=== PATIENT | female | born 1965 | race Caucasian/White ===

== ENCOUNTER → 2018-01-28 13:55 | Outpatient (POV) | payer MEDICAID, SELFPAY | PROVIDERS: Family Provider General Practice | DX: Z00.00 Encounter for general adult medical examination without abnormal findings (principal) ==

== ENCOUNTER 2021-06-02 15:22 | Emergency (ER) | payer MEDICAID, SELFPAY ==
[2021-06-02 17:14] VITALS: BP 0/0; PULSE 0; RESP 0; TEMP -17.7; TEMP 0; O2SAT 0
== END 2021-06-02 17:15 | disposition left against medical advice (07) ==
LOC: ER 16:16
PROVIDERS: Emergency Provider Emergency Medicine
DX: Z53.21 Procedure and treatment not carried out due to patient leaving prior to being seen by health care provider (principal)
CPT/HCPCS: 99211

== ENCOUNTER → 2021-07-06 21:39 | Outpatient (CLI) | payer MEDICAID, SELFPAY | PROVIDERS: Visit Provider Emergency Medicine | DX: U07.1 COVID-19 (principal) | CPT/HCPCS: C9803; U0003; U0005 ==

== ENCOUNTER 2021-07-08 12:28 | Emergency (ER) | payer MEDICAID, SELFPAY ==
[2021-07-08 12:29] VITALS: BP 137/62; PULSE 79; RESP 20; TEMP 37.2; O2SAT 93; BMI 32.2
[2021-07-08 13:00] VITALS: BP 118/65; O2SAT 92; BMI 32.2
--- NOTE | 2021-07-08 13:01 | XR_ITS ---
PROCEDURE INFORMATION: Exam: XR Chest Exam date and time: 07/08/2021 1:01 PM Age: 55 years old Clinical indication: Cough and fever; Patient HX: Covid positive, cough, fever, smoker. TECHNIQUE: Imaging protocol: XR of the chest. Views: 1 view. COMPARISON: CR CXR2V XR chest 2V 10/10/2017 2:11 PM FINDINGS: Lungs: Mild chronic right infrahilar interstitial prominence and peribronchial thickening compared with 10/10/2017. No focal consolidation. Normal lung volumes. Chronic calcified right lower pulmonary granuloma. Pleural spaces: Unremarkable. No significant pleural effusion. No pneumothorax. Heart/Mediastinum: Chronic borderline cardiomegaly. Bones/joints: There are spinal degenerative changes, with multilevel disc narrrowing and spondylosis. Soft tissues: Chronic right upper quadrant abdominal surgical clips, correlate for cholecystectomy. IMPRESSION: 1. No acute findings compared with 10/10/2017. 2. Chronic right infrahilar interstitial prominence and peribronchial thickening, correlate for history of bronchitis. 3. Chronic right lower pulmonary granuloma. 4. No focal consolidation. 5. Additional nonemergency and chronic findings as above. 6. Note that subtle ground-glass opacities of COVID-19 pneumonia can be radiographically occult on plain chest x-ray, and if further imaging is warranted by the clinical findings or course recommend CT.
--- NOTE | 2021-07-08 13:02 | HMH.EDGENADL ---
ED Disposition Clinical Impression: COVID-19 virus infection, Elevated liver enzymes Disposition: Home, Self-Care Condition on Discharge: Good Instructions: DI for Vomiting -- Adult, DI for COVID-19 (Suspected or Confirmed ) Additional Instructions: You are being provided with a list of physicians available for follow-up of your condition. Please call a physician on this list to arrange a follow-up appointment as soon as possible. Zofran as needed for nausea and vomiting. Rest, drink plenty of fluids. Tylenol or Ibuprofen for fever and/or aches and pains. Monitor your symptoms. IF YOU HAVE AN EMERGENCY WARNING SIGN (INCLUDING TROUBLE BREATHING), SEEK EMERGENCY MEDICAL CARE IMMEDIATELY. COVID-19 Isolation: People with COVID-19 should isolate for 5 days. Then if they are asymptomatic (no symptoms) or their symptoms are resolving (without fever for 24 hours), follow that by 5 days of wearing a mask when around others to minimize the risk of infecting people you encounter. If you test positive for COVID-19 and never develop symptoms, day 0 is the day of your positive viral test (based on the date you were tested) and day 1 is the first full day after your positive test. If you develop symptoms after testing positive, your 5-day isolation period must start over. Day 0 is your first day of symptoms. Day 1 is the first full day after your symptoms developed. What to do: Stay in a separate room from other household members, if possible. Use a separate bathroom, if possible. Avoid contact with other members of the household and pets. Don?t share personal household items, like cups, towels, and utensils. Wear a mask when around other people if able. Prescriptions: Ondansetron [Zofran 4mg ODT] 4 mg PO TIDP PRN #10 tab PRN Reason: Nausea And Vomiting Transmission Status: Pending to [id number] Referrals: Provider,Referral, [Primary Care Provider] - - Critical Care Critical Care Time: No Attestation: On , the high probability of a clinically significant, sudden or life threatening deterioration of the following system(s) required my full and direct attention, intervention and personal management. The time I documented below is in addition to time spent performing reported procedures but includes the following listed in this critical care notation. Medical Decision Making - King Inquiry Pt receiving controlled substance: No Vital Signs: 01/23/22 12:29 07/08/21 13:00 07/08/21 13:30 Temperature 99.0 F Temperature Source Oral Pulse Rate 76 Pulse Rate [Left Radial] 79 Respiratory Rate 20 Blood Pressure 118/65 126/59 L Blood Pressure [Right Arm] 137/62 Blood Pressure Mean 77 Blood Pressure Mean [Right Arm] 87 Blood Pressure Source [Right Arm] Automatic Cuff Blood Pressure Position [Right Arm] Sitting 02 Sat by Pulse Oximetry 93 L 92 L 90 L Oxygen Delivery Method Room Air - Lab Data Lab Results 07/08/21 12:55: WBC 8.3, RBC 4.04 L, Hgb 12.7, Hct 38.9, MCV 96.3, MCH 31.4 H, MCHC 32.6, RDW 13.0, Plt Count 176, MPV 9.0, Neut % (Auto) 86.3 H, Lymph % (Auto) 8.7 L, [place] % (Auto) 3.8, Eos % (Auto) 0.2, Baso % (Auto) 1.1, Neut # (Auto) 7.1, Lymph # (Auto) 0.7, [place] # (Auto) 0.3, Eos # (Auto) 0.0, Baso # (Auto) 0.1, Total Counted 100, Neutrophils % (Manual) 83 H, Band Neutrophils % 2.0, Lymphocytes % (Manual) 10, Monocytes % (Manual) 5, Platelet Estimate Normal, RBC Morphology Normal 07/08/21 12:55: Sodium 139, Potassium 3.3 L, Chloride 103, Carbon Dioxide 29, Anion Gap 10.3, BUN 14, Creatinine 0.70, Estimated Creat Clear 110, Estimated GFR 88, Est GFR ( Amer) 106, Glucose 132 H, Calcium 8.6, Total Bilirubin 0.3, AST 192 H, ALT 147 H, Alkaline Phosphatase 171 H, Total Protein 7.3, Albumin 4.3, Globulin 3.0, Albumin/Globulin Ratio 1.4 Result diagrams: 07/08/21 12:55 07/08/21 12:55 Orders (Tests/Meds): ED MEDICATIONS Generic Name Dose Route Start Last Ad
[2021-07-08 13:12] LABS: Basophils # 0.1 K/mm3 (0-0.2); Basophils % 1.1 % (0.1-2.0); Chloride 103 mmol/L (98-107); Eosinophils % 0.2 % (0.1-12.0); Hematocrit 38.9 % (37.0-47.0); Hemoglobin 12.7 g/dL (12.2-16.2); Lymphocytes # 0.7 K/mm3 (0.7-4.5); Lymphocytes % 8.7 % (10-50); Mean Corpuscular HGB Conc 32.6 g/dL (31.8-35.4); Mean Corpuscular Hemoglobin 31.4 pg (27.0-31.2); Mean Corpuscular Volume 96.3 fl (81-99); Monocytes # 0.3 K/mm3 (0.1-1.0); Monocytes % 3.8 % (1.7-9.3); Neutrophils # 7.1 K/mm3 (1.8-7.8); Neutrophils % 86.3 % (37.0-80.0); Platelet Count 176 K/mm3 (142-424); Red Blood Count 4.04 M/mm3 (4.20-5.40); White Blood Count 8.3 K/mm3 (4.8-10.8)
[2021-07-08 13:13] LABS: Potassium 3.3 mmoL/L (3.5-5.1); Sodium 139 mmol/L (136-145)
[2021-07-08 13:15] LABS: Alanine Aminotransferase 147 U/L (12-78); Aspartate Amino Transferase 192 U/L (14-36); Blood Urea Nitrogen 14 mg/dl (7-17); Creatinine Clearance Estimated 110 mL/min (50-200); Estimated Glomerular Filt Rate 88 ml/min (>60); GFR (African American) 106 ML/MIN (>60)
[2021-07-08 13:16] LABS: Albumin Level 4.3 g/dl (3.5-5.0); Albumin/Globulin Ratio 1.4 (1.1-1.8); Alkaline Phosphatase 171 U/L (38-126); Anion Gap 10.3 mEq/L (5-15); Bilirubin,Total 0.3 mg/dl (0.2-1.3); Calcium 8.6 mg/dl (8.4-10.2); Carbon Dioxide 29 mmol/L (22.0-30.0); Glucose 132 mg/dl (74-100); Total Protein,Serum 7.3 g/dl (6.3-8.2)
[2021-07-08 13:17] LABS: MANUAL DIFFERENTIAL MANUAL DIFFERENTIAL (MANUAL DIFF)
--- NOTE | 2021-07-08 13:24 | PC.NURSE ---
radiology at bedside
[2021-07-08 13:30] VITALS: BP 126/59; PULSE 76; O2SAT 90
[2021-07-08 13:50] LABS: Lymphocytes % 10 % (10-50); Monocytes % 5 % (2-9); Neutrophils % 83 % (42-76); Platelet Estimate Normal; RBC Morphology Normal; Total Cells Counted 100
[2021-07-08 14:22] VITALS: BP 126/60; PULSE 84; RESP 16; TEMP 36.8; O2SAT 98
[2021-07-10 08:21] LABS: Hep A Ab, IgM Negative (Negative); Hepatitis B Core Antibody IgM Negative (Negative); Hepatitis B Surface Antigen Negative (Negative); Hepatitis C Antibody <0.1 s/co ratio (0.0-0.9)
== END 2021-07-08 14:23 | disposition home or self-care (01) ==
PROVIDERS: Emergency Provider Emergency Medicine
DX: U07.1 COVID-19 (principal); R74.8 Abnormal levels of other serum enzymes; R53.83 Other fatigue
CPT/HCPCS: 71045; 80053; 80074; 85007; 85025; 96365; 96375; 99283; J2405

== ENCOUNTER 2022-12-18 16:30 | Day surgery (SDC) | payer MEDICAID, SELFPAY ==
[2022-12-18] VITALS (7 sets, daily range): BP systolic 79–189; BP diastolic 25–98; PULSE 84–122; RESP 15–18; TEMP 36.2–37.1; O2SAT 94–99; BMI 31.3
--- NOTE | 2022-12-18 17:00 | XR_ITS ---
PROCEDURE INFORMATION: Exam: XR Chest Exam date and time: 12/18/2022 5:25 PM Age: 57 years old Clinical indication: Injury or trauma; Other: Choked on chicken; Additional info: R/O fb TECHNIQUE: Imaging protocol: Radiologic exam of the chest. Views: 2 views. COMPARISON: CR XR CHEST PORTABLE 07/08/2021 1:21 PM FINDINGS: Lungs: Stable right basilar pulmonary nodule. Pleural spaces: Unremarkable. No pleural effusion. No pneumothorax. Heart/Mediastinum: Unremarkable. No cardiomegaly. Bones/joints: Unremarkable. Soft tissues: No radiopaque foreign body projects over the chest. Intraperitoneal space: Right upper quadrant surgical clips. IMPRESSION: 1. No radiopaque foreign body projects over the chest. 2. No acute pulmonary findings.
--- NOTE | 2022-12-18 18:21 | PC.NURSE ---
pt was able to take 3 sips of water before she vomited. PT states she is unable to tell if it has went down. States it does feel like it is trying to break up.
--- NOTE | 2022-12-18 18:38 | HMH.EDGENADL ---
Discharge Plan Disposition Patient Disposition: Still a Patient Chief Complaint: Skin/Abscess/Foreign Body Prescriptions Prescriptions: No Action buprenorphine-naloxone 8-2 mg tablet, sublingual 1 tab SUBLINGUAL DAILY omega 5-vck-ycs-fish oil 300-1,000 mg capsule 1 cap PO magnesium oxide 250 mg magnesium tablet 250 mg PO cholecalciferol (vitamin D3) 25 mcg (1,000 unit) tablet 25 mcg PO folic acid 800 mcg tablet 800 mcg PO pyridoxine (vitamin B6) 100 mg tablet 100 mg PO cyanocobalamin (vitamin B-12) 500 mcg tablet 500 mcg PO thiamine HCl (vitamin B1) 100 mg tablet 100 mg PO ascorbic acid (vitamin C) [Vitamin C] 500 mg tablet 500 mg PO calcium carbonate 600 mg calcium (1,500 mg) tablet 600 mg PO lisinopril 40 mg tablet 40 mg PO QDAY Qty: 90 0RF phentermine [Adipex-P] 37.5 mg tablet 37.5 mg PO DAILY Qty: 30 0RF Rx Instructions: must administer 30 minutes before or 1-2 hours after breakfast esomeprazole magnesium 40 mg capsule,delayed release(DR/EC) See Rx Instructions .ROUTE .COMPLEX Qty: 90 2RF Dose Instruction: TAKE ONE CAPSULE BY MOUTH ONCE A DAY Rx Instructions: TAKE ONE CAPSULE BY MOUTH ONCE A DAY albuterol sulfate [ProAir HFA] 90 mcg/actuation HFA aerosol inhaler See Rx Instructions .ROUTE .COMPLEX Qty: 8.5 2RF Dose Instruction: INHALE 2 PUFFS BY MOUTH EVERY 8 HOURS NEEDED FOR SHORTNESS OF BREATH OR WHEEZING Rx Instructions: INHALE 2 PUFFS BY MOUTH EVERY 8 HOURS NEEDED FOR SHORTNESS OF BREATH OR WHEEZING lidocaine 5 % adhesive patch,medicated 1 patch topical DAILY Qty: 30 3RF Rx Instructions: leave on most painful area for up to 12 hrs ibuprofen 800 mg tablet See Rx Instructions .ROUTE .COMPLEX Qty: 90 0RF Dose Instruction: TAKE ONE TABLET BY MOUTH ONCE A DAY Rx Instructions: TAKE ONE TABLET BY MOUTH ONCE A DAY diclofenac sodium 1 % gel 2 g topical QID Qty: 100 2RF Rx Instructions: apply to single elbow, wrist or hand; for hand includes palm/fingers/back of hand Referrals Follow up/Referrals: Hugh Doe MD [Primary Care Provider] - See instructions Clinical Impressions Clinical Impression: Esophageal obstruction due to food impaction Instructions Patient Instructions: DI for Skin Abscess Discharge ED Provider: Zack Barnes General Adult HPI General Chief complaint: Skin/Abscess/Foreign Body Stated complaint: choking Time Seen by Provider: 12/18/22 17:46 Mode of Arrival: Ambulatory Source of Information: Patient Limitations: No Limitations Description of Symptoms (Recalled from ER Triage Doc. by RN): pt to the ED with a possible food bolus. pt reports she was eating chicken when she felt like it didnt go down. on assessment pt is in no obvious respiratory distress but was unable to keep water down during her bedside swallow test. History of Present Illness HPI narrative: 57-year-old white female presents with food stuck in her lower esophagus. It apparently was some chicken that got stuck in her lower esophagus and has not passed now she cannot swallow anything including water. She lists an allergy to codeine and has a history of tobacco abuse drug abuse elevated liver enzymes Related Data Home Medications Medication Instructions Recorded Confirmed buprenorphine 8 mg-naloxone 2 mg 1 tab sublingual DAILY 07/31/21 11/14/22 sublingual tablet ascorbic acid (vitamin C) 500 mg 500 mg PO 11/14/22 11/14/22 tablet (Vitamin C) calcium carbonate 600 mg calcium 600 mg PO 11/14/22 11/14/22 (1,500 mg) tablet cholecalciferol (vitamin D3) 25 25 mcg PO 11/14/22 11/14/22 mcg (1,000 unit) tablet cyanocobalamin (vitamin B-12) 500 500 mcg PO 11/14/22 11/14/22 mcg tablet folic acid 800 mcg tablet 800 mcg PO 11/14/22 11/14/22 magnesium oxide 250 mg PO 11/14/22 11/14/22 omega 8-daq-dpa-fish oil 300 1 cap PO
--- NOTE | 2022-12-18 19:15 | PC.NURSE ---
Tashia Balderas RN spoke with house to have surg. team called in
--- NOTE | 2022-12-18 19:18 | PC.NURSE ---
SURGERY TEAM CALLED IN.
[2022-12-18 19:21] LABS: Basophils # 0.1 K/mm3 (0-0.2); Basophils % 0.8 % (0.1-2.0); Eosinophils # 0.3 K/mm3 (0.0-0.4); Eosinophils % 2.2 % (0.1-12.0); Hematocrit 43.2 % (37.0-47.0); Hemoglobin 14.1 g/dL (12.2-16.2); Lymphocytes # 4.5 K/mm3 (0.7-4.5); Lymphocytes % 39.7 % (10-50); Mean Corpuscular HGB Conc 32.6 g/dL (31.8-35.4); Mean Corpuscular Hemoglobin 30.1 pg (27.0-31.2); Mean Corpuscular Volume 92.2 fl (81-99); Monocytes # 0.5 K/mm3 (0.1-1.0); Monocytes % 4.5 % (1.7-9.3); Neutrophils % 52.8 % (37.0-80.0); Platelet Count 315 K/mm3 (142-424); Red Blood Count 4.69 M/mm3 (4.20-5.40); Red Cell Distribution Width 13.4 % (11.5-17.5); White Blood Count 11.3 K/mm3 (4.8-10.8)
[2022-12-18 19:26] LABS: Alanine Aminotransferase 32 U/L (12-78); Albumin Level 4.7 g/dl (3.5-5.0); Albumin/Globulin Ratio 1.3 (1.1-1.8); Alkaline Phosphatase 130 U/L (38-126); Anion Gap 13.5 mEq/L (5-15); Aspartate Amino Transferase 40 U/L (14-36); Bilirubin,Total 0.4 mg/dl (0.2-1.3); Blood Urea Nitrogen 9 mg/dl (7-17); Calcium 9.2 mg/dl (8.4-10.2); Carbon Dioxide 28 mmol/L (22.0-30.0); Chloride 102 mmol/L (98-107); Creatinine Clearance Estimated 101 mL/min (50-200); Estimated Glomerular Filt Rate 87 ml/min (>60); GFR (African American) 105 ML/MIN (>60); Globulin 3.6 g/dL (1.3-3.2); Glucose 121 mg/dl (74-100); Potassium 3.5 mmoL/L (3.5-5.1); Sodium 140 mmol/L (136-145); Total Protein,Serum 8.3 g/dl (6.3-8.2)
--- NOTE | 2022-12-18 19:35 | P.PN_ITS ---
[facility] Disclaimer: The information contained in this section may have been updated after the patient was seen, as this information can be updated by other users. Social History Smoking Status: Never smoker alcohol intake: never substance use type: former substance user and painkillers current occupational status: disabled Travel in the last 8 weeks: None [facility] Anesthesia Checklist Patient Identification Patient Identification: Arm Band and Verbal (Name & ) Structural Data Admitted From: Emergency Dept Planned Operative Procedure/s: EGD Consent for Planned Operative Procedure(s) Verified: Yes NPO Status Verified Time NPO: 17:30 Airway Assessment C-Spine Mobility Assessed: Yes TMJ Mobility Assessed: Yes Dentition: Edentulous Neurological Assessment Level of Consciousness: Awake Hx Seizures: No Numbness or tingling in extremities: No Anesthesia Plan Anesthesia Risk discussed: Yes Anesthesia Plan: Verified ASA Class: III (E) Anesthesia Type: MAC
--- NOTE | 2022-12-18 20:05 | HMH.SCOPE ---
Procedure: Date: 12/18/22 Patient Date of :: 1965 Procedure Performed:: Esophagogastroscopy with foreign body removal Indications:: Esophageal foreign body Performing Provider:: Jose Gomes MD Referring Provider:: Emergency department Sedation:: Monitored anesthesia care Procedure:: After informed consent was obtained the patient was taken to the endoscopy suite. Sedation ensued after the patient was transferred to the left lateral decubitus position. Pulse, blood pressure, and oxygen saturation were monitored throughout the procedure. The endoscope was advanced to the distal esophagus where foreign body consistent with ingested food particles/chicken was encountered. The foreign body material was retracted utilizing the eSuction device. Once the foreign body was removed the endoscope was advanced into the gastric lumen. The gastroscope was carefully removed and the patient was transferred to recovery in stable condition. Please see findings and specimens below for detail. Findings:: Distal esophageal foreign body consistent with food particle/chicken removed utilizing the eSuction device Mild Schatzki ring Specimens:: None Recommendations:: Proton pump inhibition Elective barium swallow in near future Complications:: No immediate Estimated blood obtained (mL): 0 Colonoscopy Component Colonoscopy Component Was a colonoscopy performed during today's procedure?: No
== END 2022-12-18 20:30 | disposition home or self-care (01) ==
LOC: ER 19:33 → SDC 12-19 18:13
PROVIDERS: Surgery; PCP Emergency Medicine; Visit Provider Emergency Medicine
PROC: 0DJ08ZZ Inspection of Upper Intestinal Tract, Via Natural or Artificial Opening Endoscopic (ICD-10-PCS; CPT 43235; principal; 2022-12-18 19:30)
DX: K22.2 Esophageal obstruction (principal); T18.128A Food in esophagus causing other injury, initial encounter
CPT/HCPCS: 43247; 71046; 80053; 85025; 96374; 99285; J1610

== ENCOUNTER → 2023-05-01 23:18 | Outpatient (CLI) | payer MEDICAID, SELFPAY ==
[2023-05-01 18:50] LABS: Hemoglobin A1C 5.6 % (4.0-6.0)
[2023-05-01 19:14] LABS: Chol/HDL Ratio 6.3 (1-3.5); Cholesterol 232 mg/dl (140-200); HDL Cholesterol 37 mg/dl (40-60); Triglycerides 158 mg/dl (30-150); VLDL Cholesterol 32 mg/dL (0-40)
[2023-05-01 19:25] LABS: Direct LDL Cholesterol 165.94 mg/dL (100-129)
[2023-05-01 21:07] LABS: Creatinine,Urine Random 51 mg/dL (Not Estab.)
[2023-05-01 21:09] LABS: Microalbumin < 6.000 mg/L (0-16.7)
== END ==
PROVIDERS: PCP Internal Medicine; Visit Provider Internal Medicine
DX: R73.09 Other abnormal glucose (principal); R74.8 Abnormal levels of other serum enzymes
CPT/HCPCS: 80061; 82043; 82570; 83036

== ENCOUNTER 2024-02-06 03:18 | Emergency (ER) | payer MEDICAID, SELFPAY ==
[2024-02-06 03:20] VITALS: BP 174/84; PULSE 114; RESP 18; TEMP 36.6; O2SAT 97; BMI 32.6
--- NOTE | 2024-02-06 03:32 | ED_ITS ---
Discharge Plan Disposition Patient Disposition: Home, Self-Care Prescriptions Prescriptions: No Action buprenorphine-naloxone 8-2 mg tablet, sublingual 1 tab SUBLINGUAL DAILY folic acid 800 mcg tablet 800 mcg PO atorvastatin 10 mg tablet 10 mg PO DAILY 30 Days Qty: 30 2RF albuterol sulfate [ProAir HFA] 90 mcg/actuation HFA aerosol inhaler See Rx Instructions .ROUTE .COMPLEX Qty: 8.5 2RF Dose Instruction: INHALE 2 PUFFS BY MOUTH EVERY 8 HOURS NEEDED FOR SHORTNESS OF BREATH OR WHEEZING Rx Instructions: INHALE 2 PUFFS BY MOUTH EVERY 8 HOURS NEEDED FOR SHORTNESS OF BREATH OR WHEEZING ibuprofen 800 mg tablet See Rx Instructions .ROUTE .COMPLEX Qty: 90 0RF Dose Instruction: TAKE ONE TABLET BY MOUTH ONCE A DAY Rx Instructions: TAKE ONE TABLET BY MOUTH ONCE A DAY diclofenac sodium 1 % gel 2 g topical QID Qty: 100 2RF Rx Instructions: apply to single elbow, wrist or hand; for hand includes palm/fingers/back of hand lidocaine 5 % adhesive patch,medicated 1 patch topical DAILY Qty: 30 3RF Rx Instructions: leave on most painful area for up to 12 hrs esomeprazole magnesium 40 mg capsule,delayed release(DR/EC) See Rx Instructions .ROUTE .COMPLEX Qty: 90 1RF Dose Instruction: TAKE 1 CAPSULE BY MOUTH ONCE A DAY Rx Instructions: TAKE 1 CAPSULE BY MOUTH ONCE A DAY lisinopril 40 mg tablet See Rx Instructions .ROUTE .COMPLEX Qty: 90 0RF Dose Instruction: TAKE ONE TABLET BY MOUTH ONCE A DAY Rx Instructions: TAKE ONE TABLET BY MOUTH ONCE A DAY Referrals Follow up/Referrals: Zack Guadarrama DO [Primary Care Provider] - See instructions Activity Restrictions/Add. Instructions Additional Instructions/Restrictions: Please follow-up with your primary care provider. Please return to the emergency department if you develop any new or worsening symptoms or become concerned for your health. Clinical Impressions Clinical Impression: Encounter for medical assessment, Varicose veins of legs Print Language Print Language: Kinyarwanda Discharge ED Provider: Jose M Peña Adult HPI General Chief complaint: Extremity Injury, Lower Stated complaint: Pain in L leg, blood spot on leg Time Seen by Provider: 02/06/24 03:31 Mode of Arrival: Ambulatory Source of Information: Patient Limitations: No Limitations Description of Symptoms (Recalled from ER Triage Doc. by RN): Patient reports that she's had a knot and pain in her left outer thigh for a couple months . Patient reports that tonight about 2am she noticed that it appeared to have popped and appeared to be a blood blister . Patient reports the pain has not increased or changed in any way. Patient denies trauma. History of Present Illness HPI narrative: 58-year-old female presents for evaluation of a spot on her right lateral thigh. She reports that she has had a knot there for a long time and it sometimes hurts. She looked at the leg tonight and noticed that there was some discoloration over the area and she is concerned that she could have had a blood clot bust or something like that . Related Data Home Medications ?Medication ?Instructions ?Recorded ?Confirmed buprenorphine 8 mg-naloxone 2 mg 1 tab sublingual DAILY 07/31/21 06/26/23 sublingual tablet folic acid 800 mcg tablet 800 mcg PO 11/14/22 06/26/23 Previous Rx's ?Medication ?Instructions ?Recorded albuterol sulfate 90 mcg/actuation See Rx Instructions .Route 04/30/22 aerosol inhaler (ProAir HFA) .COMPLEX #8.5 grams diclofenac sodium 1 % topical gel 2 g topical QID #100 grams 08/26/22 ibuprofen 800 mg tablet See Rx Instructions .Route 08/26/22 .COMPLEX #90 tabs atorvastatin 10 mg tablet 10 mg PO DAILY 30 days #30 tabs 06/26/23 lidocaine 5 % topical patch 1 patch topical DAILY #30 ea 10/17/23 esomeprazole magnesium 40 mg See Rx Instructions .Route 12/15/23 capsule,delayed release .COMPLEX #90 caps lisinopril 40 mg tablet See Rx Instructions .Route 02/03/24 .COMPLEX #90 tabs Allergies Allergy/AdvReac Type Severity Reaction Status Date / Time codeine Allergy Verified 06/26/23 14:31 [facility] Disclaimer: The information contained in this section may have been updated after the patient was seen, as this information can be updated by other users. Social History Smoking Status: Current every day smoker tobacco type: cigarettes packs per day: 1 alcohol intake: never substance use type: former substance user and painkillers current occupational status: disabled Travel in the last 8 weeks: None ROS Obtained: Yes All systems reviewed & no additional complaints except as documented Physical Exam General General appearance: alert and in no apparent distress Head Head exam: atraumatic and normocephalic Eye Eye exam: Present normal appearance, PERRL and EOMI ENT ENT exam: Present normal oropharynx and normal external ear exam Neck Neck exam: Present normal inspection and full ROM Chest Chest inspection: Present normal inspection and symmetric chest wall rise; Absent tenderness Respiratory Respiratory exam: Present normal lung sounds bilaterally; Absent respiratory distress Cardiovascular Cardiovascular exam: Present regular rate and normal rhythm Abdominal Exam Abdominal exam: Present soft; Absent distention, tenderness or guarding Extremities Exam Extremities exam: Present other (Discoloration over a small area of the right lateral thigh that was easily removed with alcohol swabs. There are some varicose veins underlying, no abscess, no cellulitis, no induration.); Absent edema or joint swelling Back Exam Back exam: Present normal inspection; Absent tenderness Neurological Exam Neurological exam: Present alert and oriented X3; Absent motor sensory deficit Psychiatric Psychiatric exam: Present normal affect and normal mood Skin Skin exam: Present warm, dry and normal color Lymphatic Lymphatic Findings: no adenopathy Medical Decision Making Medical Records Medical records reviewed: Yes I reviewed the patient's medical records. [place] Inquiry Pt receiving controlled substance: No Ikng was queried for this patient: No Vital Signs: 02/06/24 03:20 Temperature 97.8 F Temperature Source Oral Pulse Rate [Left Radial] 114 H Respiratory Rate 18 Blood Pressure [Right Arm] 174/84 H Blood Pressure Mean [Right Arm] 114 Blood Pressure Source [Right Arm] Automatic Cuff Blood Pressure Position [Right Arm] Sitting 02 Sat by Pulse Oximetry 97 Oxygen Delivery Method Room Air Lab Data Lab results reviewed: Yes I reviewed the patient's lab results. Medical Decision Narrative: 58-year-old female presents for chronic pain in the left lateral thigh with some discoloration of the skin that she noticed earlier tonight. The discoloration wiped off easily with alcohol swabs. Underlying this were some varicose veins but no evidence of abscess, cellulitis, DVT, etc. Low concern for emergent p athology at this time. Patient reports that she could possibly have had some pain on her from working in the garden earlier today. patient discharged in stable condition. Procedures Risk/Benefits of Procedure(s) Were Explained: Yes Critical Care Critical Care Time Critical Care Time: No
--- NOTE | 2024-02-06 03:33 | PC.NURSE ---
accompanied md to bedside for witnessing due to area to be examined. found patient to be side-lying with left lateral lower extremity exposed. noted a darkened area midway down the lateral thigh. md, using an alcohol swab, swiped at area and noted darkened area diminishing with each swipe. he continued to swipe the alcohol pad till all remnants were removed. noted area of superficial veins that are palpable. discussed s/sx of blood clots/dvts/svts with patient and risk factor. patient appears much relieved and apologies to staff for 'wasting yall's time'. no further exam needed per md. pt re-dressed and was able to ambulate independently VETO without incident or pain complaints. at side.
[2024-02-06 03:37] VITALS: BP 174/84; PULSE 118; RESP 16; TEMP 36.8; O2SAT 98
== END 2024-02-06 03:39 | disposition home or self-care (01) ==
PROVIDERS: Emergency Provider Emergency Medicine; PCP Internal Medicine
DX: I83.92 Asymptomatic varicose veins of left lower extremity (principal)
CPT/HCPCS: 99282

== ENCOUNTER 2024-12-23 14:55 | Outpatient (CLI) | payer MEDICAID, SELFPAY ==
[2024-12-23 18:52] LABS: Hematocrit 37.3 % (37.0-47.0); Hemoglobin 12.2 g/dL (12.2-16.2); Immature Granulocytes % 0.3 %; Mean Corpuscular HGB Conc 32.7 g/dL (31.8-35.4); Mean Corpuscular Hemoglobin 30.6 pg (27.0-31.2); Mean Corpuscular Volume 93.5 fl (81-99); Nucleated Red Blood Cells % 0 %; Platelet Count 262 K/mm3 (142-424); Red Blood Count 3.99 M/mm3 (4.20-5.40); Red Cell Distribution Width-SD 45.5 fL; White Blood Count 6.6 K/mm3 (4.8-10.8)
[2024-12-23 19:24] LABS: Alanine Aminotransferase 17 U/L (12-78); Albumin Level 4.5 g/dl (3.5-5.0); Albumin/Globulin Ratio 1.6 (1.1-1.8); Alkaline Phosphatase 78 U/L (38-126); Anion Gap 14.9 mEq/L (5-15); Aspartate Amino Transferase 21 U/L (14-36); Bilirubin,Total 0.4 mg/dl (0.2-1.3); Blood Urea Nitrogen 12 mg/dl (7-17); Calcium 9.7 mg/dl (8.4-10.2); Carbon Dioxide 28 mmol/L (22.0-30.0); Chloride 102 mmol/L (98-107); Cholesterol 235 mg/dl (140-200); Creatinine,Serum 0.70 mg/dl (0.52-1.04); Estimated Glomerular Filt Rate 86 ml/min (>60); GFR (African American) 104 ML/MIN (>60); Globulin 2.8 g/dL (1.3-3.2); Glucose 104 mg/dl (74-100); HDL Cholesterol 34 mg/dl (40-60); Potassium 4.9 mmoL/L (3.5-5.1); Sodium 140 mmol/L (136-145); Total Protein,Serum 7.3 g/dl (6.3-8.2); Triglycerides 189 mg/dl (30-150)
[2024-12-23 19:52] LABS: Thyroid Stimulating Hormone 1.51 uIU/mL (0.465-4.68)
[2024-12-23 20:10] LABS: Hepatitis C Ab Qual. W/ RFX NEGATIVE (Negative)
[2024-12-25 05:57] LABS: Hepatitis B Surface Antigen Negative (Negative)
== END 2024-12-23 23:59 | disposition home or self-care (01) ==
LOC: LAB.DROPOF 12-24 13:47
PROVIDERS: PCP Family Medicine; Visit Provider Family Medicine
DX: E78.2 Mixed hyperlipidemia (principal); R74.8 Abnormal levels of other serum enzymes; E66.9 Obesity, unspecified; Z11.59 Encounter for screening for other viral diseases
CPT/HCPCS: 80053; 80061; 84443; 85025; 86803; 87340; 87389

== ENCOUNTER 2025-04-23 20:13 | Emergency (ER) | payer MEDICAID, SELFPAY ==
[2025-04-23 21:22] VITALS: BP 172/79; PULSE 87; RESP 18; TEMP 37.1; O2SAT 99; BMI 33.5
[2025-04-23 21:26] VITALS: BP 172/79; PULSE 87; RESP 16; O2SAT 99
--- NOTE | 2025-04-23 21:30 | ED_ITS ---
Discharge Plan Disposition Patient Disposition: Home, Self-Care Prescriptions Prescriptions: New lidocaine 4 % adhesive patch,medicated 1 patch topical DAILY Qty: 5 0RF Rx Instructions: may leave on for up to 12 hrs prednisone 50 mg tablet 50 mg PO DAILY 5 Days Qty: 5 0RF Rx Instructions: Please begin 1 day after ED visit naproxen 500 mg tablet 500 mg PO BID PRN (Reason: pain) 7 Days Qty: 14 0RF cyclobenzaprine 5 mg tablet 5 mg PO TID PRN (Reason: muscle spasm) 5 Days Qty: 15 0RF No Action buprenorphine-naloxone 8-2 mg tablet, sublingual 1 tab SUBLINGUAL DAILY folic acid 800 mcg tablet 800 mcg PO naloxone 4 mg/actuation spray,non-aerosol 1 spray intranasal albuterol sulfate [ProAir HFA] 90 mcg/actuation HFA aerosol inhaler See Rx Instructions .ROUTE .COMPLEX Qty: 8.5 2RF Dose Instruction: INHALE 2 PUFFS BY MOUTH EVERY 8 HOURS NEEDED FOR SHORTNESS OF BREATH OR WHEEZING Rx Instructions: INHALE 2 PUFFS BY MOUTH EVERY 8 HOURS NEEDED FOR SHORTNESS OF BREATH OR WHEEZING ibuprofen 800 mg tablet See Rx Instructions .ROUTE .COMPLEX Qty: 90 3RF Dose Instruction: TAKE ONE TABLET BY MOUTH ONCE A DAY Rx Instructions: TAKE ONE TABLET BY MOUTH ONCE A DAY ondansetron HCl 4 mg tablet 4 mg PO Q8H PRN (Reason: nausea and vomiting) 4 Days Qty: 30 0RF lidocaine 5 % adhesive patch,medicated 1 patch topical DAILY Qty: 30 8RF Rx Instructions: leave on most painful area for up to 12 hrs lisinopril 40 mg tablet See Rx Instructions .ROUTE .COMPLEX Qty: 90 3RF Dose Instruction: TAKE ONE TABLET BY MOUTH ONCE A DAY Rx Instructions: TAKE ONE TABLET BY MOUTH ONCE A DAY atorvastatin [Lipitor] 40 mg tablet 40 mg PO HS Qty: 30 3RF esomeprazole magnesium 40 mg capsule,delayed release(DR/EC) See Rx Instructions .ROUTE .COMPLEX Qty: 90 0RF Dose Instruction: TAKE 1 CAPSULE BY MOUTH ONCE A DAY Rx Instructions: TAKE 1 CAPSULE BY MOUTH ONCE A DAY Referrals Follow up/Referrals: Ginny Torres APRN [Primary Care Provider, Family Practice] - See instructions Activity Restrictions/Add. Instructions Additional Instructions/Restrictions: There was no indication for emergency imaging today however your symptoms are consistent with bilateral cervical radiculopathy. Please return to the emergency point with any significant weakness in your upper extremities as discussed or any midline significant pain or other concerns. I recommend that you follow-up with your primary care doctor to get an outpatient MRI to confirm the diagnosis as this could be secondary to herniated disks degenerative disease etc. Clinical Impressions Clinical Impression: Cervical radiculopathy Print Language Print Language: Syriac Discharge ED Provider: Irena Santana General Adult HPI General Chief complaint: PAIN Stated complaint: hurt in shoulders and back Time Seen by Provider: 04/23/25 21:12 Mode of Arrival: Ambulatory Source of Information: Patient Description of Symptoms (Recalled from ER Triage Doc. by RN): PT brought to the ED for evaluation of bilateral shoulder/down arm pain that has been going on for x2 weeks. PT denies recent injury. PT stated it aches and has a numbness and tingling feeling. History of Present Illness HPI narrative: Patient is a 59-year-old with no significant past medical history presenting today with bilateral shoulder discomfort radiating down to both hands that she states feels like the sensation of when your arms wake up when they are falling asleep. No weakness in the upper extremities no significant neck pain. No injuries to the shoulders no range of motion difficulties fevers or other concerns. Does have a history of substance abuse and is chronically on Suboxone but she is been clean for 9 years. Related Data Home Medications ?Medication ?Instructions ?Recorded ?Confirmed buprenorphine 8 mg-naloxone 2 mg 1 tab sublingual LITZY Y 07/31/21 12/23/24 sublingual tablet folic acid 800 mcg tablet 800 mcg PO 11/14/22 12/23/24 naloxone 4 mg/actuation nasal spray 1 spray intranasal 12/23/24 12/23/24 Previous Rx's ?Medication ?Instructions ?Recorded lisinopril 40 mg tablet See Rx Instructions .Route 0 07/05/24 .COMPLEX #90 tabs lidocaine 5 % topical patch 1 patch topical DAILY #30 ea 08/17/24 albuterol sulfate 90 mcg/actuation See Rx Instructions .Route 12/23/24 aerosol inhaler (ProAir HFA) .COMPLEX #8.5 grams ibuprofen 800 mg tablet See Rx Instructions .Route 0 12/23/24 .COMPLEX #90 tabs ondansetron HCl 4 mg tablet 4 mg PO Q8H PRN nausea and 12/23/24 vomiting 4 days #30 tabs atorvastatin 40 mg tablet (Lipitor) 40 mg PO HS #30 ta bs 12/27/24 esomeprazole magnesium 40 mg See Rx Instructions .Blu e 01/10/25 capsule,delayed release .COMPLEX #90 caps cyclobenzaprine 5 mg tablet 5 mg PO TID PRN muscle spa sm 5 04/23/25 days #15 tabs lidocaine 4 % topical patch 1 patch topical DAILY #5 e a 04/23/25 naproxen 500 mg tablet 500 mg PO BID PRN pain 7 day s #14 04/23/25 tabs prednisone 50 mg tablet 50 mg PO DAILY 5 days #5 tab s 04/23/25 Allergies Allergy/AdvReac Type Severity Reaction Status Date / Time codeine Allergy Verified 12/23/24 14:23 [facility] Disclaimer: The information contained in this section may have been updated after the patient was seen, as this information can be updated by other users. Medical History (Updated 04/23/25 @ 21:27 by Irena Santana MD) Negative colorectal cancer screening using DNA-based stool test Patient left without being seen COVID-19 virus infection Pneumonia Esophageal obstruction due to food impaction Social History Smoking Status: Current every day smoker tobacco type: cigarettes packs per day: 1 alcohol intake: never substance use type: former substance user and painkillers current occupational status: disabled Travel in the last 8 weeks?: None Have you lived/traveled outside [place] in past 30 days?: No Contact w/someone who lives/traveled outside [place] past 30 days?: No Exposure to someone with infectious disease in past 14 days?: No Do you have a fever (greater than 100.4 F or 38 C)?: No Have you tested positive for COVID-19?: No Exposed to someone with COVID-19 in past 14 days?: No Do you have a sore throat?: No Do you have a cough?: No Do you have any weakness?: No Do you have any diarrhea?: No Are you experiencing any unusual bleeding?: No Do you have any muscle aches/pain?: No Do you have any abdominal pain?: No Are you experiencing loss of taste or smell?: No Other Medical History Have you received the Flu Vaccine for this season: No Have you received the Pneumonia Vaccine: No ROS Obtained: Yes All systems reviewed & no additional complaints except as doc umented Physical Exam General General appearance: alert and in no apparent distress Neck Neck exam: Present full ROM; Absent tenderness Respiratory Respiratory exam: Present normal lung sounds bilaterally Cardiovascular Cardiovascular exam: Present regular rate and normal rhythm Extremities Exam Extremities exam: Present other (Bilateral upper extremities normal motor exam normal sensory exam normal range of motion no swelling warmth etc.) Neurological Exam Neurological exam: Present alert and oriented X3 Medical Decision Making Medical Records Screening: Per USPSTF and CDC recommendations, given the prevalence of disease in our region, it is our hospital?s policy to screen for HIV and viral Hepatitis for all patients aged 18 and over and those with ongoing risk factors. [place] Inquiry Pt receiving controlled substance: No Vital Signs: 04/23/25 21:22 04/23/25 21:26 Temperature 98.7 F Temperature Source Oral Pulse Rate 87 Pulse Rate [Right] 87 Respiratory Rate 18 16 Blood Pressure 172/79 H Blood Pressure [Right Arm] 172/79 H Blood Pressure Mean [Right Arm] 110 02 Sat by Pulse Oximetry 99 99 Oxygen Delivery Method Room Air Room Air Orders (Tests/Meds): ED MEDICATIONS Discontinued Medications Generic Name Dose Route Start Last Admin Trade Name Freq PRN Reason Stop Dose Admin Ketorolac Tromethamine 30 mg 04/23/25 21:24 04/23/25 21:35 Ketorolac 30mg/Ml Vial IM 04/23/25 21:25 30 mg ONCE ONE Administration Lidocaine 1 each 04/23/25 21:24 04/23/25 21:35 Lidocaine 5% Transdermal Patch TD 04/23/25 21:25 1 each ONCE ONE Administration Prednisone 60 mg 04/23/25 21:24 04/23/25 21:34 Prednisone 20mg Tab PO 04/23/25 21:25 60 mg ONCE ONE Administration Medical Decision Narrative: 59-year-old with bilateral upper extremity discomfort from both shoulders radiating down to the arms consistent with cervical radiculopathy with normal motor and neurologic exam. Range of motion and shoulder exam and extremity exams are otherwise normal as well no midline pain in the neck no concern from a red flag standpoint that she needs emergent CT imaging. Advised that she get an outpatient MRI and to return with any worsening motor weakness symptomatic medications have been given and prescription sent to her pharmacy. Patient discharged in stable condition. Critical Care Critical Care Time Critical Care Time: No
[2025-04-23] MEDS: KETOROLAC 30MG/ML VIAL 30 MG IM (21:35)
[2025-04-23] MEDS: LIDOCAINE 5% TRANSDERMAL PATCH 1 EACH TD (21:35)
[2025-04-23 21:36] VITALS: BP 137/66; PULSE 71; O2SAT 95
--- OUTSIDE RECORDS SUMMARY | 2025-04-23 21:36 | XMS_ITS ---
Author Organization Unknown ENCOUNTERS Encounter Performer Location Date Diagnosis Diagnosis Status Emergency J [facility] [address] [facility] [address] [place] [address] [id number] CORNELIO Pre Admit [facility] [address] [facility] [address] [place] [address] [id number] CORNELIO Emergency [facility] [address] [facility] [address] [place] [address] [id number] CORNELIO Pre Admit [facility] [address] [place] [address] [address] [place] [address] [id number] Emergency Zack Barnes [facility] [address] [facility] [address] [place] [address] [id number] CORNELIO Emergency Chaka Segovia [address] [place] [address] [id number] CORNELIO Emergency Deana Horta [facility] [address] [facility] [address] [facility] [place] [address] [id number] LWBS *Note: Encounters from your own facility or health system may be excluded. Allergies, Adverse Reactions, Alerts Allergen Type Severity Identification Date codeine drug allergy 0 [id number] Medications Name Date Quantity Days Supplied [facility] Number
[2025-04-23 21:40] VITALS: BP 130/74; PULSE 74; RESP 16; TEMP 36.6; O2SAT 98
== END 2025-04-23 21:44 | disposition home or self-care (01) ==
PROVIDERS: Emergency Provider Student in an Organized Health Care Education/Training Program; PCP Family Medicine
DX: M54.12 Radiculopathy, cervical region (principal); M25.511 Pain in right shoulder; M25.512 Pain in left shoulder; F17.210 Nicotine dependence, cigarettes, uncomplicated
CPT/HCPCS: 96372; 96374; 99284; J1885